=== PATIENT | male | born 1980 | race Hispanic/Latino ===

== ENCOUNTER 2019-05-01 09:44 | Emergency (ER) | payer SELFPAY ==
[2019-05-01] MEDS ORDERED: Ondansetron PF 4 MG/2 ML Vial ONE ×2 (10:19→10:22)
[2019-05-01] MEDS ORDERED: Ketorolac Tromethamine 30 MG/ML VIAL ONE ×2 (10:19→10:22)
--- NOTE | 2019-05-01 10:38 | CT ---
CT Stone Protocol HISTORY: Right flank pain COMPARISON: None. FINDINGS: The lung bases are clear. The liver, spleen, pancreas and gallbladder regions appear unremarkable given the limitations of a no ncontrast study. Right and left adrenal glands and right and left kidneys are normal in size there are no renal calcul i. No signs of obstruction. No ureteral calculus. There is no significant periaortic or mesenteric lymphadenopathy. CT of pelvis performed without contrast enhancement: The appendix is normal. Sigmoid diverticulosis i s. There is no free fluid, adenopathy or mass. IMPRESSION: 1. No renal or ureteral calculi. 2. Normal appendix. 3. Sigmoid diverticulosis.
[2019-05-01] MEDS ORDERED: Morphine 4 MG/ML VIAL ONE (11:02)
[2019-05-01 11:08] LABS: Bilirubin Negative (Negative); Blood, Urine Negative (Negative); Clarity Clear (Clear); Glucose, Urine (Dipstick) Negative (Negative); Leukocyte Negative (Negative); Nitrite Negative (Negative); Protein, Urine (Dipstick) 30 mg/dL (Neg-Trace); Urobilinogen 0.2 mg/dL (0.2-1.0)
[2019-05-01 11:34] LABS: #Lymphocytes 0.8 thou/uL (1.20-3.40); #Monocytes 0.3 thou/uL (0.11-0.59); #Neutrophils 5.7 thou/uL (1.40-6.50); %Basophils 0.3 % (0.0-1.0); %Eosinophils 0.3 % (0.0-10.0); %Monocytes 3.8 % (0.0-10.0); %Neutrophils 83.5 % (42.0-75.0); Hemoglobin 14.6 g/dL (14.0-18.0); Mean Corpuscular HGB CONC 33.8 g/dL (32.0-36.0); Mean Corpuscular Hemoglobin 29.4 pg (27.0-31.0); Mean Corpuscular Volume 87.1 fL (78.0-98.0); Mean Platelet Volume 8.6 fL (7.4-10.4); Platelet Count 174 thou/uL (130-400); RBC Distribution Width 11.1 % (11.5-14.5); Red Blood Cell (RBC) Count 4.95 mill/uL (4.70-6.10); White Blood Cell (WBC) Count 6.8 thou/uL (4.8-10.8)
[2019-05-01 11:38] LABS: Bacteria/HPF None Seen HPF (None Seen); Hyaline Casts/LPF NONE SEEN LPF (0-3 Hyaline); RBC/HPF None Seen HPF (0-3); Squamous Epithelial None Seen HPF (0-3); WBC/HPF None Seen HPF (0-3)
[2019-05-01 11:58] LABS: ALT (SGPT) 40 U/L (8-55); AST (SGOT) 23 U/L (5-34); Albumin 4.3 g/dL (3.5-5.0); Alkaline Phosphatase 75 U/L (40-150); Anion Gap 9 mmol/L (10-20); BUN (Urea Nitrogen) 18 mg/dL (8.9-20.6); Bilirubin, Total 0.6 mg/dL (0.2-1.2); CK (CPK) 85 U/L (30-200); Calc. Creatinine Clearance 0 mL/min (70-130); Calcium 9.8 mg/dL (7.8-10.44); Carbon Dioxide 30 mmol/L (22-29); Chloride 102 mmol/L (98-107); Estimated GFR-MDRD Greater than 90; Globulin 3.3 g/dL (2.4-3.5); Glucose 112 mg/dL (70-105); Lipase 24 U/L (8-78); Potassium 4.3 mmol/L (3.5-5.1); Protein, Total 7.6 g/dL (6.0-8.3); Sodium 137 mmol/L (136-145)
== END 2019-05-01 13:40 | disposition home or self-care (01) ==
LOC: ERS 09:44
DX: R10.9 Unspecified abdominal pain (principal)
CPT/HCPCS: 36415; 74176; 80053; 81003; 81015; 82550; 83690; 85025; 96361; 96374; 96375; J1885; J2270; J2405